=== PATIENT | female | born 1970 | race Two or more races ===

== ENCOUNTER 2017-04-27 08:43 | Emergency (ER) | payer MEDICAID ==
[~2017-04-27] VITALS: Ht 154.9 cm; Wt 78.0 kg
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
--- NOTE | 2017-04-27 09:45 | NUR ---
MEDICATIONS GIVEN ORDERED.
[2017-04-27 12:14] VITALS: BP 117/85
--- NOTE | 2017-04-27 12:18 | NUR ---
Patient discharged to home in stable condition. Written and verbal after care instructions given. Patient verbalizes understanding of instruction. ambulatory with steady gait. rr even and unlabored. prescriptions given. no further complaints.
== END 2017-04-27 12:18 | disposition home or self-care (01) ==
LOC: ER 08:47
DX: S16.1XXA Strain of muscle, fascia and tendon at neck level, initial encounter (principal); S20.319A Abrasion of unspecified front wall of thorax, initial encounter; I10 Essential (primary) hypertension; Z95.0 Presence of cardiac pacemaker; F31.9 Bipolar disorder, unspecified; V43.52XA Car driver injured in collision with other type car in traffic accident, initial encounter; Y93.89 Activity, other specified; Y92.488 Other paved roadways as the place of occurrence of the external cause; Y99.8 Other external cause status
CPT/HCPCS: 71020-TC; 72050-TC; A4606; Q0162; Z7610

== ENCOUNTER 2018-07-26 15:38 | Emergency (ER) | payer BC ==
[~2018-07-26] VITALS: Ht 152.4 cm; Wt 76.2 kg
[2018-07-26 15:38] VITALS: BP 117/76
== END 2018-07-26 18:05 | disposition home or self-care (01) ==
LOC: ER 15:45
DX: Z76.0 Encounter for issue of repeat prescription (principal); F31.9 Bipolar disorder, unspecified; I10 Essential (primary) hypertension; Z95.0 Presence of cardiac pacemaker
CPT/HCPCS: 99283; A4606; Z7610

== ENCOUNTER 2018-12-15 20:59 | Emergency (ER) | payer BC ==
[~2018-12-15] VITALS: Ht 154.9 cm; Wt 76.7 kg
[2018-12-15 22:05] VITALS: BP 129/89
--- NOTE | 2018-12-15 22:30 | NUR ---
Pt JOSE MANUEL FROM HOME. Pt REQUESTING FOR PRESCRIPTION FOR SLEEP DUE TO INSOMNIA.
--- NOTE | 2018-12-15 22:34 | NUR ---
Pt IS WAITING IN ER CHAIR 1. NO S/S OF ACUTE DISTRESS OR SOB NOTED.
== END 2018-12-15 23:05 | disposition home or self-care (01) ==
LOC: ER 21:02
DX: F31.9 Bipolar disorder, unspecified (principal); G47.00 Insomnia, unspecified; I10 Essential (primary) hypertension; Z76.0 Encounter for issue of repeat prescription; Z95.0 Presence of cardiac pacemaker